=== PATIENT | male | born 1975 | race African-American/Black ===

== ENCOUNTER 2024-10-11 17:11 | Emergency (ER) | payer MEDICAID ==
[~2024-10-11] VITALS: Ht 180.3 cm; Wt 91.0 kg
[2024-10-11 17:31] VITALS: BP 152/107; PULSE 106; RESP 18; TEMP 37.1; O2SAT 98
== END 2024-10-11 19:00 | disposition left against medical advice (07) ==
LOC: ER 17:11
DX: R06.02 Shortness of breath (principal); Z53.21 Procedure and treatment not carried out due to patient leaving prior to being seen by health care provider
CPT/HCPCS: 71045; 93005